=== PATIENT | male | born 1960 | race Caucasian/White ===

== ENCOUNTER → 2018-03-06 | Outpatient (CLI) | payer OTHER ==
[~2018-03-06] MED LIST: AMLODIPINE BESY10 MG PO; ASA81BEC PO; IBUPROFEN 800800 M1 PO; METOPROLOL SUCC50 MG PO; MSM500 MG PO; PREDNISONE 20 M20 M1 PO; PROAIR HFA8.5 GM INH; XANAX1 MG PO; ZOCOR 10 MG TAB10 MG PO
== END ==
LOC: CAT 08:00
PROVIDERS: Internal Medicine Cardiovascular Disease
DX: I71.4 Abdominal aortic aneurysm, without rupture (principal); M43.26 Fusion of spine, lumbar region